=== PATIENT | male | born 1945 | race Caucasian/White ===

== ENCOUNTER 2016-11-25 11:13 | Emergency (ER) | payer OTHER, MEDICARE ==
[~2016-11-25 11:13] MED LIST: EPINEPHrine HCL (1:10,000) 1 MG/10 ML SYRINGE IV ONE
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
== END 2016-11-25 15:23 | disposition expired ==
LOC: EDBD 11:13 → NEPI 11:13
DX: I46.9 Cardiac arrest, cause unspecified (principal)
CPT/HCPCS: 31500; 92950; 99285; 99291; A0431; A0436; J0171; G0390